=== PATIENT | female | born 1935 ===

== ENCOUNTER 2017-01-04 14:23 | Inpatient (IN) | payer MEDICARE, OTHER ==
[2017-01-04] MEDS ORDERED: Bisacodyl SUPP* 10 MG SUPP PR PRN (15:52)
[2017-01-04] MEDS ORDERED: Ondansetron ODT TAB* 4 MG SL PRN (15:53)
[2017-01-04] MEDS ORDERED: Sodium Phosphate ADULT ENEMA* 118 ml bottle PR PRN (15:53)
[2017-01-04] MEDS ORDERED: Magnesium Hydroxide LIQ* 30 ML UDC PO PRN (15:53)
--- NOTE | 2017-01-04 19:12 | HP ---
HISTORY AND PHYSICAL:* ADDENDUM: Ms. Camilo is an 81-year-old female, who was transferred from [facility] with a hip fracture. Apparently, she had a mechanical fall within the past couple of days and then MRI of the hip revealed a hip fracture. [facility] requested for the patient to be transferred to further operatively treat the hip. The patient has a history of chronic oropharyngeal dysphagia and has a PEG tube in place with supplemental tube feeds. She also suffers from non-ST elevation [place] according to medical records we received from [facility] during her hospitalization in October of 2016. The patient is being admitted to our facility with plan for evaluation with Orthopedic Surgery for possibility of correction of the patient's hip fracture. Due to her history of non-ST elevation MT within the past 6 months, a Cardiology consult will be requested for clearance. For further details of the patient's presentation and plan, please see history and physical dictated by Evie Sena NP, on 01/04/17, with which I agree. [id number]/[facility] #: [id number] HOMER
--- NOTE | 2017-01-04 19:56 | CONSULT ---
Subjective Date of Service: 01/04/17 Interval History: Admission and consult Date: 01/04/[address] Zaira Krishna Service: Hospitalist CHIEF COMPLAINT: Right hip pain after a fall. Reason for consult: Pre-operative cardiac risk stratification. HISTORY OF PRESENT ILLNESS: Ms. Camilo is an 81-year-old female with past medical history significant for CKD, anemia, paroxysmal atrial fibrillation with evidence of sinus node dysfunction demand related ischemia during prolonged hospitalization and sepsis 10/2016, hypothyroidism and dysphagia with aspiration status post PEG tube placement, who presents to [facility] from [facility] after a fall. 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 Discharge summary 10/30/2016 ultimate diagnosis sepsis with severe hypothermia, ? colovaginal fistula, aspiration pneumonia, UTI with enterococcus and eugene. Had a peg placed that admission for aspiration recurrent. There was also paroxysmal atrial fibrillation and and "Non-ST-T wave acute [place] with demand ischemia-improved" diagnosis during this admission. An echocardiogram showed no LV dysfunction or wall motion abnormalities. Per HPI "The patient was discharged on 10/30/16 to [facility] for rehabilitation. On 12/29/16, the patient was diagnosed with a Klebsiella pneumonia UTI. She was started initially on Bactrim , but developed rash and was changed to cephalexin on 01/03/17" ON 01/01/2017 she was out with daughter, had a mechanical fall. She denies any lightheadedness, palpitations, chest pain or syncope. Found with a right hip fracture that is in need of surgery. PAST MEDICAL HISTORY: Chronic kidney disease. Anemia. Hyperlipidemia. Paroxysmal atrial fibrillation with "tachy-reshma" syndrome Hx type 2 [place] non-plaque disruption [place] GERD. Hypothyroidism. Dysphagia. C. Diff colitis. Uterine cancer. Cerebral hemangioma anemia possible lupus dysplipidemia polycythemia vera surgeries: hysterectomy tonsillectomy PEG tube placement in October 2016. allergies: penicillin, bactrim soc hhx: no tobacco or etoh fam hx: mother HTN SOCIAL HISTORY: The patient denies any tobacco, alcohol, or recreational drug use. She is a retired homemaker. The patient's daughter will be her surrogate decision maker in the event she is unable to make decisions for herself. Medications Active Medications: Acetaminophen (Tylenol Adult Liq*) 320 mg PEG TUBE Q8H PRN PRN Reason: FEVER/PAIN Aspirin (Aspirin Ec Low Dose*) 81 mg .SEE ORDER DAILY BERNADETTE Bisacodyl (Dulcolax Supp*) 10 mg IL DAILY PRN PRN Reason: CONSTIPATION Cephalexin HCl (Keflex Susp*) 250 mg PEG TUBE TID BERNADETTE Stop: 01/08/17 14:30 Docusate Sodium (Colace Liq*) 100 mg PO BID PRN PRN Reason: CONSTIPATION Enoxaparin Sodium (Lovenox(*)) 30 mg SUBCUT DAILY [facility] Famotidine (Pepcid Susp*) 20 mg PEG TUBE DAILY [facility] Ferrous Sulfate (Feosol Liq*) 300 mg PEG TUBE DAILY [facility] Lactulose (Lactulose*) 15 ml PEG TUBE DAILY PRN PRN Reason: CONSTIPATION Levothyroxine Sodium (Synthroid Tab*) 75 mcg PEG TUBE DAILY@0600 [facility] Magnesium Hydroxide (Milk Of Magnesia Liq*) 30 ml PO BEDTIME PRN PRN Reason: CONSTIPATION Ondansetron HCl (Zofran Odt Tab*) 4 mg SL Q4HR PRN PRN Reason: NAUSEA Polyvinyl Alcohol (Polyvinyl Alcohol 1.4% Opth*) 1 drop BOTH EYES Q4H PRN PRN Reason: DRY EYE Sodium Biphosphate/Sodium Phosphate (Fleet Enema*) 1 bottle IL DAILY PRN PRN Reason: CONSTIPATION Home Medications: Acetaminophen PED LIQ* [Tylenol PED LIQ UDC*] 10 ml PEG TUBE Q8HR PRN [History Confirmed 01/04/17] Aspirin EC Low Dose* [Ecotrin EC Low Dose 81 MG*] 81 mg PEG TUBE DAILY 01/04/17 [History Confirmed 01/04/17] Bisacodyl SUPP* [Dulcolax Supp*] 10 mg IL DAILY PRN 01/04/17 [History Confirmed 01/04/17] Cephalexin SUSP* [Keflex SUSP 250 MG/5 ML*] 250 mg PEG TUBE TID 01/04/17 [ History Confirmed 01/04/17] Colace 100mg/10ml 10 ml PEG TUBE BID PRN 01/04/17 [History Confirmed 01/04/17] Enoxaparin(*) [Lovenox(*)] 30 mg SUBCUT DAILY 01/04/17 [History Confirmed ] Famotidine SUSP* [Pepcid SUSP*] 40 mg PEG TUBE DAILY 01/04/17 [History Confirmed 01/04/17] Ferrous Sulfate LIQ* [Feosol LIQ*] 300 mg PEG TUBE DAILY 01/04/17 [History Confirmed 01/04/17] Lactulose* 15 ml PEG TUBE DAILY PRN 01/04/17 [History Confirmed 01/04/17] Levothyroxine TAB* [Synthroid 75 MCG TAB*] 75 mcg PEG TUBE DAILY 01/04/17 [ History Confirmed 01/04/17] Magnesium Hydroxide LIQ* [Milk of Magnesia LIQ*] 30 ml PO BEDTIME PRN 01/04/17 [ History Confirmed 01/04/17] Melatonin 6 ml PEG TUBE BEDTIME PRN 01/04/17 [History Confirmed 01/04/17] Nitroglycerin TAB 0.4 MG* 0.4 mg SL SEE INSTRUCTIONS PRN 01/04/17 [History Confirmed 01/04/17] Ondansetron ODT TAB* [Zofran 4 MG Odt TAB*] 4 mg SL Q4HR PRN 01/04/17 [History Confirmed 01/04/17] Polyethylene Glycol-Propylene [Systane Ultra 0.4-0.3 %] 1 drop BOTH EYES Q4H PRN 01/04/17 [History Confirmed 01/04/17] Sodium Phosphate ADULT ENEMA* [Fleet Enema*] 1 bottle IL DAILY PRN 01/04/17 [ History Confirmed 01/04/17] Throat Lozenges [Cough Drops Menthol] 1 jennifer PO SEE INSTRUCTIONS PRN 01/04/17 [ History Confirmed 01/04/17] diPHENhydraMINE PO* [Benadryl PO 25 MG TAB*] 25 mg PEG TUBE Q8H PRN 01/04/17 [ History Confirmed 01/04/17] Review of Systems - Measurements Intake and Output: Intake and Output Last 24 Hours 01/02/17 01/03/17 01/04/17 01/05/17 06:59 06:59 06:59 06:59 Intake Total 490 Output Total 550 Balance -60 Weight 110 lb Intake: Tube Feeding 240 Tube Feeding Flush Amount 250 Output: [place] 550 - Review of Systems Constitutional Symptoms: Positive: Unexplained Falls Negative: Weight Gain, Weight Loss, Weakness, Fatigue, Fever Dermatology: Negative: Rash, Skin Lesions HEENT: Negative: Change in Hearing, Vertigo, Tinnitus Eyes: Negative: Change in Vision, Double Vision, Eye Pain Thyroid: Negative: Thyroid Nodule, Cold Intolerance, Heat Intolerance, Sweatiness, Primary Hypothyroidism, Primary Hyperthyroidism Pulmonary: Negative: Cough, Sputum, Hemoptysis, Wheezing, Respiratory Distress, Shortness of Breath, COPD, Home Oxygen Cardiology: Negative: Chest Pain, Shortness of Breath, Palpitations, Swelling of Ankles, Peripheral Vascular Dis, Edema, Faintness, Syncope, Claudication, Paroxysmal Nocturnal Dyspnea, Orthopnea Gastroenterology: Positive: Difficulty Swallowing Negative: Abdominal Pain, Nausea, Vomiting, Heartburn, Constipation, Diarrhea , Blood in Stools, Change in Bowel Habits, Haematemesis, Melena Genital - Urinary: Negative: Dysuria, Hematuria, Polyuria Musculoskeletal: Negative: Joint Pain, Joint Stiffness, Arthritis, Low Back Pain Endocrinology: Negative: Obesity, Diabetes, Hyperglycemia, Hypoglycemia, Polydipsia, Polyuria, Pituitary Disease Hematologic/Lymphatic: Positive: Use of Antiplatelet Drugs Negative: Hx Leukemia, Hx Lymphoma, Use of Anticoagulant Neurology: Negative: Change in Vision, Diplopia, Dizziness, Change in Balancing, Change in Coordination, Change in Memory, Numbness\\Paresthesiae, Hx of Stroke\\TIA, Hx Seizures Psychiatry: Negative: Depression, Anxiety, Depressed Mood, Adhedonia, Tearfulness Allergic/Immunologic: Positive: Hx Environmental Allergies Negative: Athsma, Hx HIV Review of Systems Statement: All other review of systems negative, unless stated above. Objective Vital Signs: Temp Pulse Resp BP Pulse Ox 97.2 F 54 16 124/54 99 01/04/17 14:30 01/04/17 14:30 01/04/17 17:02 01/04/17 14:30 01/04/17 14:30 Appearance: nad, very pleasant Neck: NL Appearance and Movements; NL JVP, Trachea Midline Respiratory: Symmetrical Chest Expansion and Respiratory Effort, Clear to Auscultation Cardiovascular: NL Sounds; No Murmurs; No JVD, RRR, No Edema Abdominal: NL Sounds; No Tenderness; No Distention Extremities: No Edema, No Clubbing, Cyanosis Skin: No Rash or Ulcers Neurological: Alert and Oriented x 3 Laboratory Results: 01/05/17 06:05 01/05/17 06:05 EKG Data: 09/28/2016: NSR, LAE, RBBB Goodman TTE 09/29/2016 (indication elevated troponin): Normal LV size, LVEF 55-60% no WMA, , no significant valvular abnormalities noted, right pleural effusion noted. Assessment/Plan Eugenia Camilo is an 81 year old woman with a cardiac history of PAFib, demand related [place] evaluating for cardiac risk stratification prior to hip surgery. No recent type 1 plaque disruption [place], decompensated HF, severe valve disease, or malignant arrhythmia. No symptoms at her level of activity. LVEF 09/2016 normal. EKG earlier today showed sinus bradycardia, RBBB, no ischemic changes. There are no absolute cardiac contraindications for proceeding with hip surgery. We discussed and patient expressed understanding that there are some inherent risks of cardiovascular complications related to anesthesia and surgery despite no high risk clinical features. She accepts this risk in favor of the expected benefit the surgery is to provide. Aspirin can be held. Resting pulse is too low for a beta-bharti and I assume she has had issues with bradycardia in the past to treat atrial fibrillation given her "tachy-reshma " syndrome diagnosis although her recent fall was clearly mechanical. Thank you for allowing me to participate in the cardiovascular care of this patient. Please do not hesitate to contact me with questions or concerns.
[2017-01-04] MEDS: Cephalexin SUSP* 250 MG/5 ML ORAL.SUSP 100 ML BTL PEG TUBE SCH (21:03)
--- NOTE | 2017-01-04 22:41 | HP ---
ATTENDING PHYSICIAN ADDENDUM NOW INCLUDED ON THIS REPORT CC: Dr. Zaira Krishna * HISTORY AND PHYSICAL: DATE OF ADMISSION: 01/04/17 PRIMARY CARE PROVIDER: Dr. Zaira Krishna ATTENDING PHYSICIAN: Livia Kendrick MD * (dictated by Codi Sena NP) CHIEF COMPLAINT: Right hip pain after a fall. HISTORY OF PRESENT ILLNESS: Ms. Camilo is an 81-year-old female with past medical history significant for chronic diastolic heart failure, CKD, anemia, paroxysmal atrial fibrillation, NSTEMI in October 2016, hypothyroidism and dysphagia status post PEG tube placement, who presents to [facility] from [facility] after a fall. The patient was hospitalized in October at [facility] with sepsis. During that admission, she also had an NSTEMI and had a C. diff colitis. During that stay, the patient developed dysphagia, required PEG tube placement. The patient was discharged on 10/30/16 to [facility] for rehabilitation. On 12/29/16, the patient was diagnosed with a Klebsiella pneumonia UTI. She was started initially on Bactrim, but developed rash and was changed to cephalexin on 01/03/17. On 01/01/17, while out with her daughter, she took a step and fell; she denies any loss of consciousness, lightheadedness or dizziness at the time of the fall. She denies any head injury or any other injuries besides the right hip pain. The patient's daughter notified [facility] of the fall and they recommend the patient present to the emergency room for evaluation. While in the emergency room at [facility], the patient underwent a CT showing no signs of fracture and the patient was sent back to [facility]. On 01/02/17, during physical therapy , the patient was having increased pain with weightbearing on her right lower extremity, which was atypical for her. On 01/03/17, the patient had an MRI showing a nondisplaced fracture through the neck of the proximal right femur. The patient denies any recent fever, chills, chest pain, shortness of breath, nausea, vomiting, diarrhea, lightheadedness, dizziness or urinary symptoms. Based on the patient's hip fracture, Orthopedics Head reviewed the images at the [facility] and it was felt that the patient should be transferred to [facility] for possible surgery. The patient was directly admitted from [facility]. PAST MEDICAL HISTORY: 1. Chronic diastolic heart failure. 2. Chronic kidney disease. 3. Anemia. 4. Hyperlipidemia. 5. Paroxysmal atrial fibrillation. 6. NSTEMI. 7. GERD. 8. Hypothyroidism. 9. Dysphagia. 10. C. Diff colitis. 11. Uterine cancer. PAST SURGICAL HISTORY: 1. Status post hysterectomy. 2. Tonsillectomy as a child. 3. PEG tube placement in October 2016. HOME MEDICATIONS: Include: 1. Aspirin 81 mg via PEG tube daily. 2. Benadryl 25 mg via PEG tube every 8 hours as needed for allergic reaction, signs and symptoms. 3. Cephalexin 250 mg via G-tube 3 times daily for 5 days. 4. Cough drops 1 lozenge by mouth as needed for cough. 5. Docusate sodium 10 mL via PEG tube every 12 hours as needed for constipation. 6. Dulcolax suppository 10 mg rectal as needed for constipation. 7. Fleet enema 1 per rectum as needed for constipation if no results from Dulcolax suppository. 8. Famotidine 40 mg via G-tube daily. 9. Ferrous sulfate 300 mg via PEG tube daily. 10. Lactulose 15 mL via G-tube every day as needed for constipation. 11. Levothyroxine 75 mcg via PEG tube daily. 12. Lovenox 30 mg subcutaneous daily. 13. Melatonin liquid 6 mL via PEG tube every evening as needed for sleep. 14. Milk of magnesia 30 mL via PEG tube as needed for constipation. 15. Nitroglycerin 0.4 mg sublingual every 5 minutes as needed for chest pain for 3 doses and call M.D. 16. Systane Ultra solution eye drops 1 drop to both eyes every 4 hours as needed for dry eyes. 17. Acetaminophen 10 mL via PEG tube every 6 hours as needed for fever or pain. 18. Zofran 4 mg sublingual every 4 hours as needed for nausea, vomiting. ALLERGIES: PENICILLIN, BACTRIM. FAMILY HISTORY: The patient denies any family history of CAD, diabetes mellitus , or cancer. SOCIAL HISTORY: The patient denies any tobacco, alcohol, or recreational drug use. She is a retired homemaker. The patient's daughter, Shahrzad Rodriguez will be her surrogate decision maker in the event she is unable to make decisions for herself. REVIEW OF SYSTEMS: I performed a 14-point review of systems. All the pertinent positives and negatives are mentioned in the history of present illness. The remaining of review of systems are negative. PHYSICAL EXAMINATION GENERAL APPEARANCE: The patient is alert, pleasant, appears to be in no acute distress. VITAL SIGNS: Temperature 97.2, heart rate 54, respiratory rate 20, O2 sat 99% on room air, blood pressure 124/54. HEENT: Normocephalic, atraumatic. Pupils are equal and reactive to light. Extraocular movements are intact. RESPIRATORY: There is no accessory muscle use and her lungs are clear to auscultation bilateral. CARDIOVASCULAR: Regular rate and rhythm. S1 and S2 present. There are no murmurs, rubs, or gallops heard. ABDOMEN: Soft, nontender, nondistended. There are bowel sounds present x4. EXTREMITIES: There is no lower extremity edema. DP and PT pulses are 2+ and symmetric. MUSCULOSKELETAL: There is no clubbing or cyanosis noted. The patient exhibits good strength in all extremities. NEUROLOGICAL: The patient is alert and oriented x4. Cranial nerves II through XII are grossly intact. PSYCHOLOGICAL: The patient is calm and cooperative. SKIN: The patient has ecchymosis to her right hip. She also has a flat red rash to her face. DIAGNOSTIC STUDIES/LAB DATA: From [facility] from today, sodium 135, potassium 4.6, chloride 101, CO2 29, BUN 36, creatinine 1.4, glucose 91. White blood cell count 4.2, hemoglobin 12.0, hematocrit 37.1, and platelet count 255, 000. EKG shows a sinus bradycardia with a rate of 53 and right bundle-branch block. There is no previous EKG's for comparison. IMPRESSION: Ms. Camilo is an 81-year-old female with past medical history significant for chronic diastolic heart failure, kidney disease, anemia, hyperlipidemia, non-ST elevation myocardial infarction, paroxysmal atrial fibrillation, hypothyroidism, dysphagia, who presents to [facility] from [facility] after sustaining a fall for a right nondisplaced fracture through the neck of the proximal femur. She will be admitted as an inpatient for right hip fracture. ASSESSMENT/PLAN: 1. Right nondisplaced fracture through the neck of the proximal femur. We currently do not have imaging. We will work on getting imaging sent over from [facility]. For now, the patient will be placed on bed rest and we will ask Orthopedic Surgery to consult on her. We will use ice to her hip to help with pain and swelling. Due to the patient recently having non-ST elevation myocardial infarction, we will ask Cardiology to consult on the patient to assist with operative clearance. We will obtain an echocardiogram. 2. Urinary tract infection. Urine culture positive for Klebsiella Pneumonia. The patient will complete her course of cephalexin that is due to be continued through 1400 dose on 01/08/17. 3. Dysphagia with recurrent aspiration. The patient has a G-tube. She will be continued on a Jevity 1.5 with 4 cans total daily and water flushes before and after feeds in addition to flushing with medications. 4. Chronic diastolic heart failure. Cautious use of IV fluids. We are going to check an echocardiogram. 5. Gastroesophageal reflux disease. The patient will be continued on her home famotidine. 6. Hypothyroidism. The patient will be continued on her levothyroxine. 7. Paroxysmal atrial fibrillation. The patient is currently in a reshma sinus rhythm. She is not anticoagulated or currently on rate control medications. 8. Fluids, electrolytes and nutrition. Nothing by mouth. The patient may have ice chips and honey thick water as needed. She will have Jevity 1.5 tube feedings. 9. Code status. DNR/DNI. 10. DVT prophylaxis. The patient is at highest risk and will have Lovenox and SCD's. 12. Disposition. Inpatient. TIME SPENT: Time for this admission was approximately 60 minutes, greater than half of that was spent with the patient discussing medications, past medical history, and the events leading up to her arrival today, and performing a physical examination. The case has been reviewed with the attending, Dr. Kendrick, who agrees with the plan of care. Reviewed by CODI SENA, ANNE-Meg 01/05/17 8904 ADDENDUM: Ms. Camilo is an 81-year-old female, who was transferred from [facility] with a hip fracture. Apparently, she had a mechanical fall within the past couple of days and then MRI of the hip revealed a hip fracture. [facility] requested for the patient to be transferred to further operatively treat the hip. The patient has a history of chronic oropharyngeal dysphagia and has a PEG tube in place with supplemental tube feeds. She also suffers from non-ST elevation [place] according to medical records we received from [facility] during her hospitalization in October of 2016. The patient is being admitted to our facility with plan for evaluation with Orthopedic Surgery for possibility of correction of the patient's hip fracture. Due to her history of non-ST elevation [place] within the past 6 months, a Cardiology consult will be requested for clearance. For further details of the patient's presentation and plan, please see history and physical dictated by Codi Sena NP, on 01/04/17, with which I agree. LIVIA KENDRICK MD [id number]/[facility] #: [id number]/[facility] #: [id number] HOMER
[2017-01-04] MEDS: Acetaminophen ADULT LIQ* 650 MG/20.3 ML UDC PEG TUBE PRN (23:20)
[2017-01-05] MEDS: Levothyroxine TAB* 75 MCG TAB PEG TUBE SCH (05:37)
[2017-01-05] MEDS: Docusate LIQ* 100 MG/10 ML UDC PO PRN (05:37)
[2017-01-05 06:20] LABS: Hematocrit 37 % (35-47); Mean Corpuscular HGB Conc 33 g/dl (31-36); Mean Corpuscular Hemoglobin 32 pg (27-31); Mean Corpuscular Volume 97 fL (80-97); Mean Platelet Volume 10 um3 (7.4-10.4); Red Cell Distribution Width 17 % (10.5-15)
[2017-01-05 06:35] LABS: BUN/Creatinine Ratio 29.5 (8-20); Calcium 9.2 mg/dL (8.6-10.3); EGFR African American 54.5 (>60); EGFR Non-African American 42.4 (>60)
[2017-01-05 06:38] LABS: Potassium 4.7 mmol/L (3.5-5.0)
--- NOTE | 2017-01-05 07:32 | PN ---
Progress Note - Progress Note Date of Service: 01/05/17 Note: Full note dictated. Fall last Sunday. Has been walking but with significant pain R hip ever since. Lives at home alone but has been in a rehab facility. MRI done yesterday showed nondisplaced R femoral neck fracture. CT and MRI reviewed, no xrays available so those were ordered. A/P: R nondisplaced femoral neck fracture. Will plan on percutaneous fixation either by one of my partners today or by myself tomorrow. Had a tube feed at 6 am. Holding tube feeds now.
[2017-01-05] MEDS: Ferrous Sulfate LIQ* 300 MG/5 ML UDC PEG TUBE SCH (08:22)
[2017-01-05] MEDS: Cephalexin SUSP* 250 MG/5 ML ORAL.SUSP 100 ML BTL PEG TUBE SCH ×2 (08:22→22:32)
[2017-01-05] MEDS: Famotidine SUSP* 40 MG/5 ML ORAL.SUSP PEG TUBE SCH (08:22)
--- NOTE | 2017-01-05 08:24 | PN ---
Subjective Date of Service: 01/05/17 Interval History: Ms. Camilo is a bit confused about details but she states that she is feeling well. She denies chest pain, SOB, nausea, or abdominal pain. She notes that her right hip doesn't hurt unless she tries to move it. Objective Active Medications: Acetaminophen (Tylenol Adult Liq*) 320 mg PEG TUBE Q8H PRN Aspirin (Aspirin Ec Low Dose*) 81 mg .SEE ORDER DAILY [facility] Bisacodyl (Dulcolax Supp*) 10 mg DC DAILY PRN Cephalexin HCl (Keflex Susp*) 250 mg PEG TUBE TID [facility] Docusate Sodium (Colace Liq*) 100 mg PO BID PRN Enoxaparin Sodium (Lovenox(*)) 30 mg SUBCUT DAILY [facility] Famotidine (Pepcid Susp*) 20 mg PEG TUBE DAILY [facility] Ferrous Sulfate (Feosol Liq*) 300 mg PEG TUBE DAILY [facility] Lactulose (Lactulose*) 15 ml PEG TUBE DAILY PRN Levothyroxine Sodium (Synthroid Tab*) 75 mcg PEG TUBE DAILY@0600 [facility] Magnesium Hydroxide (Milk Of Magnesia Liq*) 30 ml PO BEDTIME PRN Ondansetron HCl (Zofran Odt Tab*) 4 mg SL Q4HR PRN Polyvinyl Alcohol (Polyvinyl Alcohol 1.4% Opth*) 1 drop BOTH EYES Q4H PRN Sodium Biphosphate/Sodium Phosphate (Fleet Enema*) 1 bottle DC DAILY PRN Vital Signs 01/04/17 01/04/17 01/04/17 14:30 15:32 17:02 Temperature 97.2 F Pulse Rate 54 Respiratory 20 20 16 Rate Blood Pressure 124/54 (mmHg) O2 Sat by Pulse 99 Oximetry 01/04/17 01/04/17 01/04/17 19:52 19:57 23:17 Temperature 97.4 F 97.7 F Pulse Rate 59 61 Respiratory 18 18 16 Rate Blood Pressure 108/47 103/48 (mmHg) O2 Sat by Pulse 99 100 Oximetry 01/05/17 01/05/17 03:36 06:02 Temperature 97.4 F Pulse Rate 58 62 Respiratory Rate Blood Pressure 97/51 107/48 (mmHg) O2 Sat by Pulse 100 Oximetry Oxygen Devices in Use Now: None Appearance: Female lying in bed in NAD Eyes: No Scleral Icterus Ears/Nose/Mouth/Throat: Mucous Membranes Moist Neck: Trachea Midline Respiratory: Symmetrical Chest Expansion and Respiratory Effort, Clear to Auscultation Cardiovascular: NL Sounds; No Murmurs; No JVD, No Edema Abdominal: NL Sounds; No Tenderness; No Distention Lymphatic: No Cervical Adenopathy Extremities: No Edema Skin: No Rash or Ulcers, No Nodules or Sclerosis Neurological: Alert and Oriented x 3, NL Muscle Strength and Tone, - - Confused on details about events leading to hospitalization Result Diagrams: 01/05/17 06:05 01/05/17 06:05 Microbiology and Other Data: Microbiology 01/04/17 15:20 Nasal Screen MRSA (PCR)(GOOD) - Final Nasal Mrsa Negative Assess/Plan/Problems-Billing Assessment: Ms. Camilo is an 81 yo female with a PMH of chronic diastolic HF, CAD with NSTEMI, CKD, paroxymal afib, and dysphagia on tube feedings who was admitted on 01/04/17 with a right hip fracture after a mechanical fall. - Patient Problems (1) Closed right hip fracture Comment: - May have surgery today, Dr. Hopkins has consulted. - Pre-op cardiology consultation, no further testing and no contraindications for proceeding with surgery. (2) CKD (chronic kidney disease) Comment: - Creatinine at baseline. (3) UTI (urinary tract infection) Comment: - Diagnosed at [facility]. - Complete course of cephalexin. (4) CAD (coronary artery disease) Comment: - Asymptomatic. - Hx of NSTEMI at [facility] in October 2016, thought to be due to sepsis and demand ischemia. EF 09/2016 was normal. - Continue low dose aspirin when approved per surgery. (5) Paroxysmal a-fib Comment: - Currently in SR. - Not on rate controlling agents (question history of tachy-reshma syndrome) or anticoagulation likely due to poor functional status. (6) Hypothyroidism Comment: - Continue levothyroxine. (7) DVT prophylaxis Comment: - Continue lovenox. (8) DNR (do not resuscitate) Status and Disposition: Inpatient. Likely return to [facility] when medically stable.
--- NOTE | 2017-01-05 08:34 | RAD ---
Indication: Right hip pain. 2 views of the right hip and an AP view of the pelvis demonstrates fracture of the neck of the right femur. There is likely overriding of the fracture fragments. IMPRESSION: Nondisplaced fracture of the neck of the right femur.
--- NOTE | 2017-01-05 08:46 | RAD ---
Indication: Right femur injury. 2 views of the right femur demonstrates nondisplaced fracture through the neck of the right femur. The remainder of the diaphysis is unremarkable. IMPRESSION: No fracture of the right femur is noted. Nondisplaced fracture neck of the right femur.
[2017-01-05] MEDS ORDERED: Enoxaparin(*) 30 MG/0.3 ML SYR SUBCUT SCH (09:00)
[2017-01-05] MEDS ORDERED: KETAMINE HCL* 50 MG/ML 10 ML VIAL ONE (11:34)
[2017-01-05] MEDS ORDERED: Midazolam* 1 MG/ML 2 ML VIAL (2 MG) ONE ×2 (11:35→14:01)
[2017-01-05] MEDS ORDERED: Bupivacaine 0.5% W/EPI SDV* 10 ML VIAL INJ ONE ×2 (11:38)
[2017-01-05] MEDS ORDERED: Morphine PF AMP (0.5MG/ML)* 5 MG/10 ML AMP ONE (11:59)
[2017-01-05] MEDS ORDERED: ceFAZolin 2 GM PREMIX(*) 2 GM/50 ML BAG IVPB ONE (12:01)
--- NOTE | 2017-01-05 13:37 | CONS ---
CONSULTATION REPORT: DATE OF CONSULT: 01/05/17 CHIEF COMPLAINT: Right hip pain. HISTORY OF PRESENT ILLNESS: Ms. Camilo is 81 years old. She lives independently at home in [place] . Her is . She has had a complicated recent medical course including a hospitaliza tion in October at [place] with sepsis. She also had some cardiac issues at that time, she had C. diff. She had a PEG tube placed for dysphagia. She went to [facility] in October. On 12/29/16, she wa s diagnosed with klebsiella urinary tract infection. She was started on Bactrim. She states she was doing well. She later had been changed to cephalexin. On last Sunday, she had a fall where she sa id that she just went to step and was not sure what happened but she fell. Since then, she has had significant right hip pain. She has been ambulating. She had some x-rays and CT scan done, which we re inconclusive for fracture. When the pain persisted, she had an MRI scan of the hip done yesterda y, which showed a nondisplaced femoral neck fracture. She was direct admitted to the hospital. [place] frances, she is very conversant with me, says she only has right hip, otherwise she is feeling pretty goo d. PAST MEDICAL HISTORY: Chronic diastolic heart failure, chronic kidney disease, anemia, hyperlipidem ia, paroxysmal atrial fibrillation, history of NSTEMI, GERD, hypothyroidism, dysphagia, C. diff coli tis, history of uterine cancer. PAST SURGICAL HISTORY: PEG tube placement in October 2016, status post hysterectomy, tonsillectomy as a child. MEDICATIONS: She takes an aspirin 81 mg daily via the PEG tube. Her home medications also include: 1. Benadryl. 2. Cephalexin. 3. Famotidine. 4. Iron. 5. Lactulose. 6. Levothyroxine. 7. Lovenox 30 mg subcutaneous daily. 8. Melatonin. There is no significant change from these medications here in the hospital. ALLERGIES: PENICILLIN and BACTRIM with a recent rash on BACTRIM. FAMILY HISTORY: Noncontributory. SOCIAL HISTORY: She lives independently at her own home. She is a . She does not smoke or dr ink alcohol. REVIEW OF SYSTEMS: Right hip pain; otherwise, full review of systems was conducted and was negative . PHYSICAL EXAM: Awake and alert this morning, very pleasant. Vital Signs: 97.4, 58, 97/51, 100% on room air. HEENT: Normocephalic, atraumatic. Respiratory: Normal respiratory effort, clear. Card iovascular: Regular. Abdomen: Soft, nondistended. Musculoskeletal: Secondary survey of the bila teral upper extremities and left lower extremity is negative. She has no deformity in the right low er extremity. No tenderness over the knee or hip. Her pelvis is stable. She has pain with log roll of the right hip. Neurological: Neurovascularly intact distally. DIAGNOSTIC STUDIES/LAB DATA: Her H and H is 12 and 37, her white count is 5.0, platelets are 212. The creatinine is 1.22. The rest of the chemistries are all unremarkable. Recent CT dated 12/29/16 was reviewed by me. I do not see any obvious femoral neck fracture on the CT. MRI dated 01/03/17 shows a hypointense lucent line along the course of the femoral neck. The right femoral neck on the T1 series on the fluid-sensitive sequences, this is a hyperintense line thought consistent with a nondisplaced fracture. IMPRESSION: Right femoral neck nondisplaced fracture. PLAN: I will obtain x-rays. I would recommend operative stabilization to prevent this from displac ing as displacement of the fracture would necessitate likely hip replacement. I will ask them to ho ld tube feeds. She had a tube feed this morning at 6 a.m. Neither myself or one of my partners emmanuel l plan on taking care of this either today, if not, we will let her get some feeds and then we will hold those at midnight and I will take care of it tomorrow. The plan would be for percutaneous fixa tion of her nondisplaced right femoral neck fracture. [id number]/[facility] #: [id number]
[2017-01-05] MEDS ORDERED: Phenylephrine INJ* 10 MG/ML 1 ML VIAL (10 MG) ONE (14:02)
[2017-01-05] MEDS ORDERED: fentaNYL* 50 MCG/ML 2 ML VIAL (100 MCG VIAL) ONE (14:45)
[2017-01-05] MEDS ORDERED: EPHEDrine (Pressors)* 50 MG/ML VIAL ONE (14:51)
[2017-01-05] MEDS: fentaNYL* 50 MCG/ML 2 ML VIAL (100 MCG VIAL) IV PRN ×4 (15:00→16:39)
--- NOTE | 2017-01-05 16:05 | RAD ---
INDICATION: Right hip fracture internal fixation COMPARISONS: January 06, 2016 TECHNIQUE: Fluoroscopy was provided for a surgical procedure. Total fluoroscopy time is: 140.5 seconds FINDINGS: Spot images of the straight internal fixation of the right femoral neck IMPRESSION: FLUOROSCOPY WAS PROVIDED FOR A SURGICAL PROCEDURE CPT II Codes: 6045F
[2017-01-05] MEDS ORDERED: Morphine INJ* 4 MG/ML 1 ML SYRINGE ONE (17:07)
[2017-01-05] MEDS: Morphine INJ* 2 MG/ML 1 ML SYRINGE IV PRN ×5 (17:13→17:37)
[2017-01-05] MEDS ORDERED: NS 0.9% 500 ML BAG* 500 ML IV ONE (19:00)
--- NOTE | 2017-01-05 19:01 | PN ---
Subjective Date of Service: 01/05/17 Interval History: dos 01/05/2017 s/p surgery no chest pain, dyspnea or lightheadedness Medications Active Medications: Acetaminophen (Tylenol Adult Liq*) 320 mg PEG TUBE Q8H PRN PRN Reason: FEVER/PAIN Last Admin: 01/04/17 23:20 Dose: 320 mg Aspirin (Aspirin Ec Low Dose*) 81 mg .SEE ORDER DAILY [facility] Bisacodyl (Dulcolax Supp*) 10 mg MN DAILY PRN PRN Reason: CONSTIPATION Cephalexin HCl (Keflex Susp*) 250 mg PEG TUBE TID [facility] Stop: 01/08/17 14:30 Last Admin: 01/05/17 08:22 Dose: 250 mg Docusate Sodium (Colace Liq*) 100 mg PO BID PRN PRN Reason: CONSTIPATION Last Admin: 01/05/17 05:37 Dose: 100 mg Famotidine (Pepcid Susp*) 20 mg PEG TUBE DAILY [facility] Last Admin: 01/05/17 08:22 Dose: 20 mg Ferrous Sulfate (Feosol Liq*) 300 mg PEG TUBE DAILY [facility] Last Admin: 01/05/17 08:22 Dose: 300 mg Sodium Chloride (Ns 0.9% 500 Ml Bag*) 500 mls @ 1,000 mls/hr IV ONCE ONE Stop: 01/05/17 19:29 Last Admin: 01/05/17 18:48 Dose: 1,000 mls/hr Sodium Chloride (Ns 0.9% 1000 Ml*) 1,000 mls @ 100 mls/hr IV PER RATE [facility] Lactulose (Lactulose*) 15 ml PEG TUBE DAILY PRN PRN Reason: CONSTIPATION Last Admin: 01/04/17 23:20 Dose: 15 ml Levothyroxine Sodium (Synthroid Tab*) 75 mcg PEG TUBE DAILY@0600 [facility] Last Admin: 01/05/17 05:37 Dose: 75 mcg Magnesium Hydroxide (Milk Of Magnesia Liq*) 30 ml PO BEDTIME PRN PRN Reason: CONSTIPATION Ondansetron HCl (Zofran Odt Tab*) 4 mg SL Q4HR PRN PRN Reason: NAUSEA Oxycodone HCl (Roxycodone Tab*) 5 mg PO Q4H PRN PRN Reason: PAIN Polyvinyl Alcohol (Polyvinyl Alcohol 1.4% Opth*) 1 drop BOTH EYES Q4H PRN PRN Reason: DRY EYE Sodium Biphosphate/Sodium Phosphate (Fleet Enema*) 1 bottle MN DAILY PRN PRN Reason: CONSTIPATION Objective Vital Signs: Temp Pulse Resp BP Pulse Ox 96.6 F 59 16 101/52 100 01/05/17 17:15 01/05/17 17:28 01/05/17 17:37 01/05/17 17:28 01/05/17 17:28 Oxygen Devices in Use Now: None Appearance: nad, very pleasant Neck: NL Appearance and Movements; NL JVP, Trachea Midline Respiratory: Symmetrical Chest Expansion and Respiratory Effort, Clear to Auscultation Cardiovascular: NL Sounds; No Murmurs; No JVD, RRR, No Edema Abdominal: NL Sounds; No Tenderness; No Distention Extremities: No Edema, No Clubbing, Cyanosis Skin: No Rash or Ulcers Neurological: Alert and Oriented x 3 Laboratory Results: 01/05/17 06:05 01/05/17 06:05 EKG Data: 09/28/2016: NSR, LAE, RBBB [place] TTE 09/29/2016 (indication elevated troponin): Normal LV size, LVEF 55-60% no WMA, , no significant valvular abnormalities noted, right pleural effusion noted. Assessment/Plan Eugenia Camilo is an 81 year old woman with a cardiac history of PAFib with sinus node dysfunction, demand related VA, RBBB, TTE today normal LVEF no significant valvular abnormalities now post-hip surgery doing well. - Can continue prior medications including aspirin if ok from a surgery standpoint Thank you for allowing me to participate in the cardiovascular care of this patient. Please do not hesitate to contact me with questions or concerns.
[2017-01-05] MEDS: Aspirin EC Low Dose* 81 MG TAB.EC SCH (20:58)
[2017-01-05] MEDS: Acetaminophen ADULT LIQ* 650 MG/20.3 ML UDC PEG TUBE PRN (21:05)
[2017-01-05] MEDS: ceFAZolin 1 GM in Dextrose (*) 1 GM/50 ML BAG IVPB SCH (21:05)
[2017-01-06] MEDS: NS 0.9% 1000 ML* 1,000 ML IV SCH ×3 (00:53→21:40)
[2017-01-06] MEDS: Acetaminophen ADULT LIQ* 650 MG/20.3 ML UDC PEG TUBE PRN ×3 (04:14→17:08)
[2017-01-06] MEDS: ceFAZolin 1 GM in Dextrose (*) 1 GM/50 ML BAG IVPB SCH ×2 (04:15→12:36)
[2017-01-06 05:36] LABS: Hematocrit 25 % (35-47); Hemoglobin 8.2 g/dl (12.0-16.0)
[2017-01-06] MEDS: Levothyroxine TAB* 75 MCG TAB PEG TUBE SCH (05:47)
[2017-01-06 05:52] LABS: Albumin 2.3 g/dL (3.2-5.2); BUN/Creatinine Ratio 27.4 (8-20); Calcium 8.5 mg/dL (8.6-10.3); EGFR African American 64.1 (>60); EGFR Non-African American 49.9 (>60); Potassium 4.5 mmol/L (3.5-5.0); Total Bilirubin 0.2 mg/dL (0.2-1.0); Total Protein 4.3 g/dL (6.4-8.9)
[2017-01-06] MEDS: oxyCODONE TAB* 5 MG TAB PO PRN ×4 (07:39→21:04)
--- NOTE | 2017-01-06 08:31 | PN ---
Progress Note - Progress Note Date of Service: 01/06/17 SOAP: Subjective: Patient has right hip pain. She is happy with her progress. Cards 01/05/17 post-op: may restart pre-op meds including ASA, no other interventions Objective: NAD Abd S/ND/NT with PEG tube in place RLE - dressing c/d/i - NVID Selected Entries 01/06/17 07:47 Temperature 96.7 F Pulse Rate 59 Blood Pressure 100/48 (mmHg) O2 Sat by Pulse 99 Oximetry Laboratory Tests 01/05/17 01/05/17 01/06/17 06:05 06:05 05:30 WBC 5.0 Hct 37 25 L Creatinine 1.22 H 01/06/17 05:30 WBC Hct Creatinine 1.06 H Assessment: POD 1 CR cannulated screws R hip femoral neck fracture Plan: - PT, OOB, TDWB - Anticoagulation with Lovenox 30 mg daily - Pain control - Ancef 1 gm IV q 8 hrs for 24 hrs - May restart ASA from a surgical perspective. I softly prefer ASA 81mg rather than 325mg as the patient is currently on Lovenox.
[2017-01-06] MEDS: Aspirin EC Low Dose* 81 MG TAB.EC SCH (09:45)
[2017-01-06] MEDS: Famotidine SUSP* 40 MG/5 ML ORAL.SUSP PEG TUBE SCH (09:46)
[2017-01-06] MEDS: Ferrous Sulfate LIQ* 300 MG/5 ML UDC PEG TUBE SCH (09:47)
[2017-01-06] MEDS: Docusate LIQ* 100 MG/10 ML UDC PO PRN (09:47)
[2017-01-06] MEDS: Enoxaparin(*) 30 MG/0.3 ML SYR SUBCUT SCH (09:54)
--- NOTE | 2017-01-06 10:32 | PN ---
Subjective Date of Service: 01/06/17 Interval History: Ms. Camilo reports that she has some right hip pain but denies other complaint including chest pain, SOB, nausea, or abdominal pain. Objective Active Medications: Acetaminophen (Tylenol Adult Liq*) 320 mg PEG TUBE Q6H PRN Aspirin (Aspirin Ec Low Dose*) 81 mg .SEE ORDER DAILY [facility] Bisacodyl (Dulcolax Supp*) 10 mg DE DAILY PRN Cephalexin HCl (Keflex Susp*) 250 mg PEG TUBE 0900,1400,2100 [facility] Docusate Sodium (Colace Liq*) 100 mg PO BID PRN Enoxaparin Sodium (Lovenox(*)) 30 mg SUBCUT DAILY [facility] Famotidine (Pepcid Susp*) 20 mg PEG TUBE DAILY [facility] Ferrous Sulfate (Feosol Liq*) 300 mg PEG TUBE DAILY [facility] Sodium Chloride (Ns 0.9% 1000 Ml*) 1,000 mls @ 100 mls/hr IV PER RATE [facility] Cefazolin Sodium/Dextrose (Kefzol 1 Gm In Dextrose Duplex (*)) 1 gm in 50 mls @ 200 mls/hr IVPB Q8H [facility] Lactulose (Lactulose*) 15 ml PEG TUBE DAILY PRN Levothyroxine Sodium (Synthroid Tab*) 75 mcg PEG TUBE DAILY@0600 [facility] Magnesium Hydroxide (Milk Of Magnesia Liq*) 30 ml PO BEDTIME PRN Ondansetron HCl (Zofran Odt Tab*) 4 mg SL Q4HR PRN Oxycodone HCl (Roxycodone Tab*) 5 mg PO Q4H PRN Polyvinyl Alcohol (Polyvinyl Alcohol 1.4% Opth*) 1 drop BOTH EYES Q4H PRN Sodium Biphosphate/Sodium Phosphate (Fleet Enema*) 1 bottle DE DAILY PRN Vital Signs 01/05/17 01/05/17 01/05/17 14:25 14:30 14:35 Temperature 96.8 F Pulse Rate 75 72 67 Respiratory 12 14 14 Rate Blood Pressure 142/76 149/69 90/56 (mmHg) O2 Sat by Pulse 99 98 98 Oximetry 01/05/17 01/05/17 01/05/17 14:45 15:00 15:15 Temperature 96.8 F Pulse Rate 74 68 68 Respiratory 14 14 14 Rate Blood Pressure 87/56 124/66 97/55 (mmHg) O2 Sat by Pulse 98 98 97 Oximetry 01/05/17 01/05/17 01/05/17 15:17 15:24 15:30 Temperature Pulse Rate 64 Respiratory 14 14 14 Rate Blood Pressure 80/53 (mmHg) O2 Sat by Pulse 97 Oximetry 01/05/17 01/05/17 01/05/17 15:45 16:00 16:15 Temperature Pulse Rate 65 65 65 Respiratory 12 14 14 Rate Blood Pressure 88/50 87/59 93/50 (mmHg) O2 Sat by Pulse 97 98 99 Oximetry 01/05/17 01/05/17 01/05/17 16:30 16:39 16:45 Temperature Pulse Rate 61 59 Respiratory 14 14 14 Rate Blood Pressure 83/57 97/51 (mmHg) O2 Sat by Pulse 99 98 Oximetry 01/05/17 01/05/17 01/05/17 17:00 17:13 17:15 Temperature 96.6 F Pulse Rate 58 57 Respiratory 14 14 16 Rate Blood Pressure 103/52 99/55 (mmHg) O2 Sat by Pulse 99 99 Oximetry 01/05/17 01/05/17 01/05/17 17:23 17:28 17:29 Temperature Pulse Rate 59 Respiratory 16 16 16 Rate Blood Pressure 101/52 (mmHg) O2 Sat by Pulse 100 Oximetry 01/05/17 01/05/17 01/05/17 17:32 17:37 18:15 Temperature 95.9 F Pulse Rate 56 Respiratory 15 16 16 Rate Blood Pressure 90/45 (mmHg) O2 Sat by Pulse 100 Oximetry 01/05/17 01/05/17 01/05/17 18:37 19:13 19:20 Temperature Pulse Rate 58 59 Respiratory 18 18 Rate Blood Pressure 93/41 97/42 (mmHg) O2 Sat by Pulse 100 Oximetry 01/05/17 01/05/17 01/05/17 19:23 20:00 20:20 Temperature 97.6 F Pulse Rate 59 55 Respiratory 18 16 Rate Blood Pressure 98/51 102/37 (mmHg) O2 Sat by Pulse 100 Oximetry 01/05/17 01/05/17 01/05/17 21:14 21:16 22:01 Temperature Pulse Rate 54 55 Respiratory 18 18 Rate Blood Pressure 95/45 97/33 (mmHg) O2 Sat by Pulse 100 100 Oximetry 01/05/17 01/05/17 01/05/17 22:05 22:20 22:28 Temperature 96.6 F Pulse Rate 56 Respiratory 18 18 Rate Blood Pressure 86/36 98/40 (mmHg) O2 Sat by Pulse Oximetry 01/05/17 01/05/17 01/06/17 23:34 23:35 01:00 Temperature 96.7 F 96.7 F 96.9 F Pulse Rate 55 55 59 Respiratory 20 18 18 Rate Blood Pressure 98/48 98/48 98/46 (mmHg) O2 Sat by Pulse 100 100 99 Oximetry 01/06/17 01/06/17 01/06/17 04:00 04:12 04:26 Temperature 95.8 F 96.8 F Pulse Rate 52 Respiratory Rate Blood Pressure 83/41 94/50 (mmHg) O2 Sat by Pulse 100 Oximetry 01/06/17 01/06/17 01/06/17 07:39 07:47 08:00 Temperature 96.7 F Pulse Rate 59 Respiratory 18 18 18 Rate Blood Pressure 100/48 (mmHg) O2 Sat by Pulse 99 Oximetry 01/06/17 09:39 Temperature Pulse Rate Respiratory 18 Rate Blood Pressure (mmHg) O2 Sat by Pulse Oximetry Oxygen Devices in Use Now: None Appearance: Elderly female lying in bed in NAD Eyes: No Scleral Icterus Ears/Nose/Mouth/Throat: Mucous Membranes Moist Neck: Trachea Midline Respiratory: Symmetrical Chest Expansion and Respiratory Effort, Clear to Auscultation Cardiovascular: NL Sounds; No Murmurs; No JVD, No Edema Abdominal: NL Sounds; No Tenderness; No Distention Lymphatic: No Cervical Adenopathy Extremities: No Edema Skin: No Rash or Ulcers Neurological: Alert and Oriented x 3, NL Muscle Strength and Tone Nutrition: Taking PO's Result Diagrams: 01/06/17 05:30 01/06/17 05:30 Microbiology and Other Data: Microbiology 01/04/17 15:20 Nasal Screen MRSA (PCR)(GOOD) - Final Nasal Mrsa Negative Assess/Plan/Problems-Billing Assessment: Ms. Camilo is an 81 yo female with a PMH of chronic diastolic HF, CAD with NSTEMI, CKD, paroxymal afib, and dysphagia on tube feedings who was admitted on 01/04/17 with a right hip fracture after a mechanical fall. - Patient Problems (1) Closed right hip fracture Comment: - POD # 1. - Management per ortho. - Pain meds prn with bowel regimen. - Hgb down to 8.2 from 12. Will consider transfusion if < 8 and patient is symptomatic. (2) Chronic diastolic heart failure Comment: - Asymptomatic. Appears euvolemic. (3) CKD (chronic kidney disease) Comment: - Creatinine at baseline. (4) UTI (urinary tract infection) Comment: - Diagnosed at [facility]. - Completed course of cephalexin. (5) CAD (coronary artery disease) Comment: - Asymptomatic. - Hx of NSTEMI at [facility] in October 2016, thought to be due to sepsis and demand ischemia. EF 09/2016 was normal. - Continue low dose aspirin. (6) Paroxysmal a-fib Comment: - Currently in SR. - Not on rate controlling agents (question history of tachy-reshma syndrome) or anticoagulation likely due to poor functional status. (7) Hypothyroidism Comment: - Continue levothyroxine. (8) Dysphagia Comment: - Continue jevity per routine. (9) GERD (gastroesophageal reflux disease) Comment: - Continue famotidine. (10) DVT prophylaxis Comment: - Continue lovenox. (11) DNR (do not resuscitate) Status and Disposition: Inpatient. Likely return to [facility] when medically stable.
--- NOTE | 2017-01-06 15:07 | OP ---
OPERATIVE REPORT: DATE OF OPERATION: 01/05/17 DATE OF : 37 SURGEON: Jair Callahan MD SENIOR TRAINING AND DEVELOPMENT REP: YANA Segal A physician mri assistant was required throughout the length of the procedure for positioning and retrac tion. ANESTHESIOLOGIST: Ryan Holguin MD ANESTHESIA: Spinal anesthesia, local anesthesia, 10 cc of 0.5% Marcaine with epinephrine. PRE-OP DIAGNOSIS: Right nondisplaced femoral neck fracture. POST-OP DIAGNOSIS: Right hip nondisplaced femoral neck fracture. OPERATIVE PROCEDURE: Closed reduction percutaneous screw placement, femoral neck fracture, right hi p. ANTIBIOSIS: 2 g Ancef IV. IV FLUIDS: 1200 cc crystalloid. COMPLICATIONS: None. SPECIMEN: None. ESTIMATED BLOOD LOSS: Approximately 200 cc. IMPLANTS: Synthes, 7.3 cannulated screws x3. Two screws were long threaded and 88 mm long. One sc rew was short threaded and 85 mm long, the inferior screw. INDICATIONS FOR PROCEDURE: The patient is an 81-year-old woman, lives independently in the [facility], who has had a very complicated recent past medical history including hospitalization in October at [facility] with sepsis, a C-diff infection, a PEG tube placed for dysphagia and a klebsiella ur inary tract infection. She was most recently at [facility]. The patient was treated by Bact rim which was changed to Keflex for her urinary tract infection. Seven days ago, the patient had a fall. Unclear history of exactly how she fell. The patient is not a good historian herself and so history is from attendants at [facility] and the patient's daughter. The patient developed signifi cant right hip pain. She went to [facility] where x-rays and a CT scan were done, but were i nconclusive. No clear fracture was visualized. The patient then had an MRI scan of the right hip, which demonstrated nondisplaced femoral neck fracture at the [facility]. The patient was the refore directly admitted to [facility] for operative management. My partner, Dr[facility] Lb Hopkins, [facility] and [facility] the [facility]. I concur with his evaluation that the femoral neck fracture is not dayna ar on the CT, but there are lucencies about the femoral neck on the MRI dated 01/03/17 and that x-ra ys on admission to [facility] do show a clear defect of the inferior side of the femoral neck. Dr. Hopkins planned to do the procedure, but I was available and so did the procedure. The pa kwasi's tube feeds were held at 6 a.m. the date of surgery. I spoke with the patient's daughter sneha holman obtained operative consent from her. The patient did not have any other questions. I explained t he rationale for surgery, benefits, risks and potential complications. DESCRIPTION OF PROCEDURE: A preoperative consent was obtained by telephone from the patient's daugh ter. Two witnesses signed the consent form. They spoke with the patient's daughter as well. Opera tive extremity was marked in Preoperative Holding. The patient was taken back to the operating room and placed supine on the fracture table. A spinal anesthetic was infused by Anesthesia. The patien t was positioned in the fracture table. Some light traction was placed on the right lower extremity to try to improve some very subtle apex anterior angulation at the fracture site. This was very pérez btle angulation; we may have improved it slightly. The right lower extremity was prepped and draped. Surgical time-out was performed. Appropriate land sahni were marked with a skin marker. A pin was placed, starting at the level of the lesser trochan ter and going up into the femoral neck and head. It was not yet perfect, but I had decided to extend my skin incision. I made skin incision proximally 5 cm in length and longitudinal through the skin and then with the [place] blade through the subcutaneous tissue, iliotibial band and vastus laterali s. Retractors were placed. Pin position was improved. A pin was placed starting at the level of t he lesser trochanter, and aiming as parallel as possible to the femoral shaft orientation to obtain valgus screw position as much as possible. I placed the inferior pin first. My inferior pin was ri ght along the subchondral bone of the inferior femoral neck. I then used a variety of pin inserted devices to place 2 additional pins, one more proximal and ante rior; one more proximal and posterior. I then improved upon the position of my inferior pin making it slightly more proximal, so would not dig into subchondral bone or through subchondral bone quite as much. With my pin positions confirmed to be excellent in the AP view and a variety of lateral vi ews, I next measured the correct length for my screws to be. I then drilled the lateral cortex only and placed the screws. My first screw, I placed inferior, I made that a short thread as I did not believe the long thread would span the fracture line. I placed a short threaded 90 mm screw. That was later removed and turned into an 85 mm screw as I just did not like how close it was to the subc hondral bone even though I was being overly careful. Given any shift or impaction or vagaries that may happen postoperative, I want to be clear of the subchondral bone. I placed my more proximal scr ews after having drilled the lateral cortex. Those were both long threaded screws. The long thread s appeared to cross the fracture line. One of those screws I also shortened, so actually wasted 2 s crews in the procedure unfortunately. The bite of all 3 screws was excellent, telling me that I have excellent purchase of bone and that s hould heal excellently. A lucency was still visualized at the inferior aspect of the fracture line, but the purchase of the screws was excellent, so I am confident of a very good result regarding scr ew position and screw to bone purchase. Profuse irrigation. Closure of the iliotibial band with [id number] stitches using Vicryl 0 sut ure. Irrigation. Closure of the subcutaneous layer, few deep stitches followed by more superficial subcutaneous stitches with buried simple stitches using Vicryl 2.0 suture. Closure of skin with sta ples. Local anesthesia, 10 cc of 0.5% Marcaine with epinephrine. Xeroform, 4x4's, ABDs, foam tape. The pa tient was taken off the fracture table and placed on the stretcher. DISPOSITION: The patient will be readmitted to the medical service. She will be anticoagulated wit h Lovenox 40 mg subcu daily starting the morning after surgery as along as that is okay with the [facility] service given her medical comorbidities. We will follow her creatinine. Ancef 1 g IV q.8 hour s x 24 hours. Touchdown weightbearing until 2 weeks postop. The patient will see me in 10 to 14 da ys postoperatively and will have her abhijit removed. Her dressing will be changed for the first ti me on either postoperative day 2 or 3. [id number]/[facility] #: [id number]
[2017-01-06] MEDS: Cephalexin SUSP* 250 MG/5 ML ORAL.SUSP 100 ML BTL PEG TUBE SCH (21:10)
[2017-01-07] MEDS: oxyCODONE TAB* 5 MG TAB PO PRN ×5 (03:50→23:28)
[2017-01-07] MEDS: Levothyroxine TAB* 75 MCG TAB PEG TUBE SCH (05:37)
[2017-01-07] MEDS: Acetaminophen ADULT LIQ* 650 MG/20.3 ML UDC PEG TUBE PRN ×2 (06:00)
[2017-01-07 06:34] LABS: Hematocrit 25 % (35-47)
[2017-01-07] MEDS: NS 0.9% 1000 ML* 1,000 ML IV SCH (07:35)
--- NOTE | 2017-01-07 08:06 | PN ---
Progress Note - Progress Note Date of Service: 01/07/17 Note: Doing well this morning. Pain improved. Out of bed to chair. Awake and alert Dressing c/d/i +TA/GS function distally H/H stable: 8.0/25 A/P: Doing well POD#2 Continue care, no changes, already out of bed this morning Dispo planning
--- NOTE | 2017-01-07 09:34 | PN ---
Subjective Date of Service: 01/07/17 Interval History: Ms. Camilo states that she is feeling well today. She denies chest pain, SOB, nausea, or abdominal pain. Objective Active Medications: Acetaminophen (Tylenol Adult Liq*) 320 mg PEG TUBE Q6H PRN Aspirin (Aspirin Ec Low Dose*) 81 mg .SEE ORDER DAILY BERNADETTE Bisacodyl (Dulcolax Supp*) 10 mg [place] DAILY PRN Cephalexin HCl (Keflex Susp*) 250 mg PEG TUBE 0900,1400,2100 BERNADETTE Docusate Sodium (Colace Liq*) 100 mg PO BID PRN Enoxaparin Sodium (Lovenox(*)) 30 mg SUBCUT DAILY BERNADETTE Famotidine (Pepcid Susp*) 20 mg PEG TUBE DAILY BERNADETTE Ferrous Sulfate (Feosol Liq*) 300 mg PEG TUBE DAILY BERNADETTE Sodium Chloride (Ns 0.9% 1000 Ml*) 1,000 mls @ 100 mls/hr IV PER RATE BERNADETTE Lactulose (Lactulose*) 15 ml PEG TUBE DAILY PRN Levothyroxine Sodium (Synthroid Tab*) 75 mcg PEG TUBE DAILY@0600 BERNADETTE Magnesium Hydroxide (Milk Of Magnesia Liq*) 30 ml PO BEDTIME PRN Ondansetron HCl (Zofran Odt Tab*) 4 mg SL Q4HR PRN Oxycodone HCl (Roxycodone Tab*) 5 mg PO Q4H PRN Polyvinyl Alcohol (Polyvinyl Alcohol 1.4% Opth*) 1 drop BOTH EYES Q4H PRN Sodium Biphosphate/Sodium Phosphate (Fleet Enema*) 1 bottle [place] DAILY PRN Vital Signs 01/06/17 01/06/17 01/06/17 09:39 11:50 11:59 Temperature 97.1 F Pulse Rate 63 Respiratory 18 18 Rate Blood Pressure 108/52 (mmHg) O2 Sat by Pulse 100 Oximetry 01/06/17 01/06/17 01/06/17 12:36 14:36 14:52 Temperature 97.0 F Pulse Rate 57 Respiratory 18 18 16 Rate Blood Pressure (mmHg) O2 Sat by Pulse 100 Oximetry 01/06/17 01/06/17 01/06/17 14:54 16:00 16:17 Temperature Pulse Rate Respiratory Rate Blood Pressure 100/50 (mmHg) O2 Sat by Pulse 98 98 Oximetry 01/06/17 01/06/17 01/06/17 17:06 19:06 19:21 Temperature Pulse Rate 69 Respiratory 20 16 15 Rate Blood Pressure 85/35 (mmHg) O2 Sat by Pulse 100 Oximetry 01/06/17 01/06/17 01/06/17 19:37 19:38 19:49 Temperature 96.8 F Pulse Rate Respiratory 15 Rate Blood Pressure 94/52 (mmHg) O2 Sat by Pulse Oximetry 01/06/17 01/06/17 01/07/17 21:04 23:04 00:00 Temperature Pulse Rate Respiratory 18 16 Rate Blood Pressure (mmHg) O2 Sat by Pulse 100 Oximetry 01/07/17 01/07/17 01/07/17 00:12 03:43 03:45 Temperature 97.7 F Pulse Rate 68 Respiratory 16 Rate Blood Pressure 102/54 92/54 (mmHg) O2 Sat by Pulse 100 Oximetry 01/07/17 01/07/17 01/07/17 03:50 07:34 07:35 Temperature 97.0 F Pulse Rate 74 Respiratory 16 16 16 Rate Blood Pressure 98/48 (mmHg) O2 Sat by Pulse 100 100 Oximetry Oxygen Devices in Use Now: None Appearance: Elderly female sitting up in chair in NAD Eyes: No Scleral Icterus Ears/Nose/Mouth/Throat: Mucous Membranes Moist Neck: Trachea Midline Respiratory: Symmetrical Chest Expansion and Respiratory Effort, Clear to Auscultation Cardiovascular: NL Sounds; No Murmurs; No JVD, No Edema Abdominal: NL Sounds; No Tenderness; No Distention Lymphatic: No Cervical Adenopathy Extremities: No Edema Skin: No Rash or Ulcers Neurological: Alert and Oriented x 3, NL Muscle Strength and Tone Nutrition: Taking PO's Result Diagrams: 01/07/17 06:08 01/06/17 05:30 Microbiology and Other Data: Microbiology 01/04/17 15:20 Nasal Screen MRSA (PCR)(GOOD) - Final Nasal Mrsa Negative Assess/Plan/Problems-Billing Assessment: Ms. Camilo is an 81 yo female with a PMH of chronic diastolic HF, CAD with NSTEMI, CKD, paroxymal afib, and dysphagia on tube feedings who was admitted on 01/04/17 with a right hip fracture after a mechanical fall. - Patient Problems (1) Closed right hip fracture Comment: - POD # 2. - Management per ortho. - Pain meds prn with bowel regimen. - Hgb down to 8.0 from 12. Will consider transfusion if < 8 and/or patient is symptomatic. (2) Chronic diastolic heart failure Comment: - Asymptomatic. Appears euvolemic. (3) CKD (chronic kidney disease) Comment: - Creatinine at baseline. (4) UTI (urinary tract infection) Comment: - Diagnosed at [facility]. - Completed course of cephalexin. (5) CAD (coronary artery disease) Comment: - Asymptomatic. - Hx of NSTEMI at [facility] in October 2016, thought to be due to sepsis and demand ischemia. EF 09/2016 was normal. - Continue low dose aspirin. (6) Paroxysmal a-fib Comment: - Currently in SR. - Not on rate controlling agents (question history of tachy-reshma syndrome) or anticoagulation likely due to poor functional status. (7) Hypothyroidism Comment: - Continue levothyroxine. (8) Dysphagia Comment: - Continue jevity per routine. (9) GERD (gastroesophageal reflux disease) Comment: - Continue famotidine. (10) DVT prophylaxis Comment: - Continue lovenox. (11) DNR (do not resuscitate) Status and Disposition: Inpatient. Likely return to [facility] when medically stable.
[2017-01-07] MEDS: Ferrous Sulfate LIQ* 300 MG/5 ML UDC PEG TUBE SCH (09:46)
[2017-01-07] MEDS: Enoxaparin(*) 30 MG/0.3 ML SYR SUBCUT SCH (09:47)
[2017-01-07] MEDS: Aspirin EC Low Dose* 81 MG TAB.EC SCH (09:47)
[2017-01-07] MEDS: Famotidine SUSP* 40 MG/5 ML ORAL.SUSP PEG TUBE SCH (10:06)
[2017-01-07] MEDS: Cephalexin SUSP* 250 MG/5 ML ORAL.SUSP 100 ML BTL PEG TUBE SCH ×3 (10:06→20:51)
--- NOTE | 2017-01-07 10:15 | PN ---
Progress Note - Progress Note Date of Service: 01/07/17 SOAP: Subjective: 81 y/o female POD #2 CR cannulated screws R hip femoral neck fracture. Objective: General- Resting in chair comfortably, NAD, AO MSK- SUrgical dressing removed, minimal old blood at wound site, no erythema/ warmth. Dressing replaced, + DF/PF b/l LEs, PT 2+ b/l, neg homans b/l, sensation to light touch intact. R hip flexion to ~30 before pain. Vital Signs Temp 97.0 F 01/07/17 07:34 Pulse 74 01/07/17 07:34 Resp 18 01/07/17 09:47 BP 98/48 01/07/17 07:34 Pulse Ox 100 01/07/17 07:35 Intake & Output 01/06/17 01/07/17 01/07/17 18:59 06:59 18:59 Intake Total 2483 1378 Output Total 700 1475 Balance 1783 -97 Intake: IV Fluids 1918 1288 NS 1810 1288 cefazolin 108 Oral 0 Tube Feeding 150 Tube Feeding Flush Amount 415 90 Output: [place] 700 1475 Other: # Bowel Movements 1 Estimated Stool Amount Medium Assessment: 81 y/o female POD #2 CR cannulated screws R hip femoral neck fracture. Plan: - Post-Op Anemia- Continues to be stable, low BP, RRR. Monitor for possible transfusion, cardiac history. Continue iron - Continue PT/OT - Latham removal today - Daily dressing changes. - DVT prophylaxis- lovenox Active Medications Generic Name Dose Route Start Last Admin Trade Name Freq PRN Reason Stop Dose Admin Acetaminophen 320 mg 01/06/17 02:58 01/07/17 06:00 Tylenol Adult Liq* PEG TUBE 320 mg Q6H PRN Administration FEVER/PAIN Aspirin 81 mg 01/05/17 09:00 01/07/17 09:47 Aspirin Ec Low Dose* .SEE ORDER 81 mg DAILY BERNADETTE Administration Bisacodyl 10 mg 01/04/17 15:52 01/07/17 00:01 Dulcolax Supp* CA 10 mg DAILY PRN Administration CONSTIPATION Cephalexin HCl 250 mg 01/06/17 21:00 01/07/17 10:06 Keflex Susp* PEG TUBE 01/08/17 14:30 250 mg 0900,1400,2100 BERNADETTE Administration Docusate Sodium 100 mg 01/04/17 16:18 01/06/17 09:47 Colace Liq* PO 100 mg BID PRN Administration CONSTIPATION Enoxaparin Sodium 30 mg 01/06/17 09:00 01/07/17 09:47 Lovenox(*) SUBCUT 30 mg DAILY BERNADETTE Administration Famotidine 20 mg 01/05/17 09:00 01/07/17 10:06 Pepcid Susp* PEG TUBE 20 mg DAILY BERNADETTE Administration Ferrous Sulfate 300 mg 01/05/17 09:00 01/07/17 09:46 Feosol Liq* PEG TUBE 300 mg DAILY BERNADETTE Administration Sodium Chloride 1,000 mls @ 100 mls/hr 01/05/17 18:45 01/07/17 07:35 Ns 0.9% 1000 Ml* IV 100 mls/hr PER RATE BERNADETTE Administration Lactulose 15 ml 01/04/17 15:53 01/06/17 17:06 Lactulose* PEG TUBE 15 ml DAILY PRN Administration CONSTIPATION Levothyroxine Sodium 75 mcg 01/05/17 06:00 01/07/17 05:37 Synthroid Tab* PEG TUBE 75 mcg DAILY@0600 BERNADETTE Administration Magnesium Hydroxide 30 ml 01/04/17 15:53 01/06/17 09:47 Milk Of Magnesia Liq* PO 30 ml BEDTIME PRN Administration CONSTIPATION Ondansetron HCl 4 mg 01/04/17 15:53 Zofran Odt Tab* SL Q4HR PRN NAUSEA Oxycodone HCl 5 mg 01/05/17 18:34 01/07/17 09:47 Roxycodone Tab* PO 5 mg Q4H PRN Administration PAIN Polyvinyl Alcohol 1 drop 01/04/17 15:53 Polyvinyl Alcohol 1.4% Opth* BOTH EYES Q4H PRN DRY EYE Sodium Biphosphate/Sodium Phosphate 1 bottle 01/04/17 15:53 Fleet Enema* [place] DAILY PRN CONSTIPATION
[2017-01-07] MEDS: Artificial Tears* 15 ML BTL BOTH EYES PRN ×2 (10:52→15:45)
[2017-01-08] MEDS: oxyCODONE TAB* 5 MG TAB PO PRN ×4 (03:44→18:29)
[2017-01-08] MEDS: Levothyroxine TAB* 75 MCG TAB PEG TUBE SCH (05:41)
[2017-01-08 06:24] LABS: Hematocrit 23 % (35-47); Hemoglobin 7.6 g/dl (12.0-16.0)
--- NOTE | 2017-01-08 08:44 | PN ---
Progress Note - Progress Note Date of Service: 01/08/17 SOAP: Subjective: Complains of right hip, reduced since yesterday [facility] had planned to transfuse for Hb <8, but patient does not complain of CP, SOB. Objective: NAD RLE - small amount of dried, bloody spotting on dressing - inc cdi - NVID including DP pulse intact Selected Entries 01/08/17 07:27 Temperature 96.9 F Pulse Rate 72 Respiratory 16 Rate Blood Pressure 87/38 (mmHg) O2 Sat by Pulse 100 Oximetry Laboratory Tests 01/06/17 01/07/17 01/08/17 05:30 06:08 06:02 Hct 25 L 25 L 23 L UO 1900cc yesterday. Assessment: POD 3 R hip closed reduction cannulated screws Plan: - PT, OOB, TDWB RLE - Lovenox 30 daily - Pain control - Dispo planning. Discharge when medically stable. - f/u in office 10-14 days postop for removal of abhijit, x-rays - Given 1900cc urine in last 24 hours, I suspect that H/H decrease is likely secondary to hemodilution. Perhaps medicine should discontinue IVF or adjust tube feeds. - f/u H/H tomorrow morning, defer to [facility] on transfusion.
[2017-01-08] MEDS: Acetaminophen ADULT LIQ* 650 MG/20.3 ML UDC PEG TUBE PRN ×2 (09:01→18:30)
[2017-01-08] MEDS: Enoxaparin(*) 30 MG/0.3 ML SYR SUBCUT SCH (09:02)
[2017-01-08] MEDS: Ferrous Sulfate LIQ* 300 MG/5 ML UDC PEG TUBE SCH (09:02)
[2017-01-08] MEDS: Aspirin EC Low Dose* 81 MG TAB.EC SCH (09:03)
[2017-01-08] MEDS: Cephalexin SUSP* 250 MG/5 ML ORAL.SUSP 100 ML BTL PEG TUBE SCH ×2 (09:03→14:34)
[2017-01-08] MEDS: Famotidine SUSP* 40 MG/5 ML ORAL.SUSP PEG TUBE SCH (10:20)
--- NOTE | 2017-01-08 16:38 | PN ---
Subjective Date of Service: 01/08/17 Interval History: Ms. Camilo states that she is feeling well today. She denies any complaint including chest pain, SOB, nausea, or abdominal pain. Objective Active Medications: Acetaminophen (Tylenol Adult Liq*) 320 mg PEG TUBE Q6H PRN Aspirin (Aspirin Ec Low Dose*) 81 mg .SEE ORDER DAILY BERNADETTE Bisacodyl (Dulcolax Supp*) 10 mg [place] DAILY PRN Docusate Sodium (Colace Liq*) 100 mg PO BID PRN Enoxaparin Sodium (Lovenox(*)) 30 mg SUBCUT DAILY BERNADETTE Famotidine (Pepcid Susp*) 20 mg PEG TUBE DAILY BERNADETTE Ferrous Sulfate (Feosol Liq*) 300 mg PEG TUBE DAILY BERNADETTE Lactulose (Lactulose*) 15 ml PEG TUBE DAILY PRN Levothyroxine Sodium (Synthroid Tab*) 75 mcg PEG TUBE DAILY@0600 BERNADETTE Magnesium Hydroxide (Milk Of Magnesia Liq*) 30 ml PO BEDTIME PRN Ondansetron HCl (Zofran Odt Tab*) 4 mg SL Q4HR PRN Oxycodone HCl (Roxycodone Tab*) 5 mg PO Q4H PRN Polyvinyl Alcohol (Polyvinyl Alcohol 1.4% Opth*) 1 drop BOTH EYES Q4H PRN Sodium Biphosphate/Sodium Phosphate (Fleet Enema*) 1 bottle [place] DAILY PRN Vital Signs 01/07/17 01/07/17 01/07/17 19:08 19:13 19:15 Temperature 96.5 F Pulse Rate 58 Respiratory 18 16 18 Rate Blood Pressure (mmHg) O2 Sat by Pulse 100 Oximetry 01/07/17 01/07/17 01/07/17 19:17 19:21 19:24 Temperature Pulse Rate Respiratory 18 18 Rate Blood Pressure 102/46 (mmHg) O2 Sat by Pulse Oximetry 01/07/17 01/07/17 01/07/17 21:08 23:28 23:36 Temperature 97.0 F Pulse Rate 68 Respiratory 16 16 16 Rate Blood Pressure 104/40 (mmHg) O2 Sat by Pulse 100 Oximetry 01/07/17 01/08/17 01/08/17 23:46 01:28 01:51 Temperature Pulse Rate Respiratory 16 Rate Blood Pressure 105/60 (mmHg) O2 Sat by Pulse 100 Oximetry 01/08/17 01/08/17 01/08/17 03:43 03:44 05:44 Temperature 96.8 F Pulse Rate 72 Respiratory 16 16 16 Rate Blood Pressure 103/57 (mmHg) O2 Sat by Pulse 100 Oximetry 01/08/17 01/08/17 01/08/17 07:27 07:35 08:15 Temperature 96.9 F Pulse Rate 72 Respiratory 16 16 Rate Blood Pressure 87/38 (mmHg) O2 Sat by Pulse 100 100 97 Oximetry 01/08/17 01/08/17 01/08/17 09:00 10:46 11:26 Temperature 96.7 F Pulse Rate 71 Respiratory 16 16 18 Rate Blood Pressure 82/42 (mmHg) O2 Sat by Pulse 97 Oximetry 01/08/17 01/08/17 14:04 15:22 Temperature 97.0 F Pulse Rate 71 Respiratory 16 15 Rate Blood Pressure 85/44 (mmHg) O2 Sat by Pulse 99 Oximetry Oxygen Devices in Use Now: None Appearance: Elderly female lying in bed in NAD Eyes: No Scleral Icterus Ears/Nose/Mouth/Throat: Mucous Membranes Moist Neck: Trachea Midline Respiratory: Symmetrical Chest Expansion and Respiratory Effort, Clear to Auscultation Cardiovascular: NL Sounds; No Murmurs; No JVD, No Edema Abdominal: NL Sounds; No Tenderness; No Distention Lymphatic: No Cervical Adenopathy Extremities: No Edema Skin: No Rash or Ulcers Neurological: Alert and Oriented x 3, NL Muscle Strength and Tone Result Diagrams: 01/08/17 06:02 01/06/17 05:30 Microbiology and Other Data: Microbiology 01/04/17 15:20 Nasal Screen MRSA (PCR)(GOOD) - Final Nasal Mrsa Negative Assess/Plan/Problems-Billing Assessment: Ms. Camilo is an 81 yo female with a PMH of chronic diastolic HF, CAD with NSTEMI, CKD, paroxymal afib, and dysphagia on tube feedings who was admitted on 01/04/17 with a right hip fracture after a mechanical fall. - Patient Problems (1) Closed right hip fracture Comment: - POD # 3. - Management per ortho. - Pain meds prn with bowel regimen. - Hgb down to 7.6 from 12. May be component of hemodilution, d/c'd IV fluids. Will order one unit of PRBC given history of NSTEMI in October 2016. (2) Chronic diastolic heart failure Comment: - Asymptomatic. Appears euvolemic. (3) CKD (chronic kidney disease) Comment: - Creatinine at baseline. (4) UTI (urinary tract infection) Comment: - Diagnosed at [facility]. - Completed course of cephalexin. (5) CAD (coronary artery disease) Comment: - Asymptomatic. - Hx of NSTEMI at [facility] in October 2016, thought to be due to sepsis and demand ischemia. EF 09/2016 was normal. - Continue low dose aspirin. (6) Paroxysmal a-fib Comment: - Currently in SR. - Not on rate controlling agents (question history of tachy-reshma syndrome) or anticoagulation likely due to poor functional status. (7) Hypothyroidism Comment: - Continue levothyroxine. (8) Dysphagia Comment: - Continue jevity per routine with free water. (9) GERD (gastroesophageal reflux disease) Comment: - Continue famotidine. (10) DVT prophylaxis Comment: - Continue lovenox. (11) DNR (do not resuscitate) Status and Disposition: Inpatient. Discharged planned for tomorrow back to [facility].
[2017-01-09] MEDS: oxyCODONE TAB* 5 MG TAB PO PRN ×2 (03:39→08:36)
[2017-01-09] MEDS: Levothyroxine TAB* 75 MCG TAB PEG TUBE SCH (05:40)
[2017-01-09 05:53] LABS: Hematocrit 27 % (35-47)
[2017-01-09 07:36] VITALS: BP 105/50
--- NOTE | 2017-01-09 08:01 | PN ---
Subjective Date of Service: 01/09/17 Interval History: Patient seen and examined at bedside. Ms. Camilo is sitting up in bed doing leg exercises. She denies any fever/chills, chest pain, SOB, n/v. She does reports some left leg stiffness secondary to sleeping longer than usual. No other concerns. She is looking forward to going back home today. Family History: Unchanged from Admission Social History: Unchanged from Admission Past Medical History: Unchanged from Admission Objective Active Medications: Acetaminophen (Tylenol Adult Liq*) 320 mg PEG TUBE Q6H PRN PRN Reason: FEVER/PAIN Last Admin: 01/08/17 18:30 Dose: 320 mg Aspirin (Aspirin Ec Low Dose*) 81 mg .SEE ORDER DAILY [facility] Last Admin: 01/08/17 09:03 Dose: 81 mg Bisacodyl (Dulcolax Supp*) 10 mg AK DAILY PRN PRN Reason: CONSTIPATION Last Admin: 01/07/17 00:01 Dose: 10 mg Docusate Sodium (Colace Liq*) 100 mg PO BID PRN PRN Reason: CONSTIPATION Last Admin: 01/06/17 09:47 Dose: 100 mg Enoxaparin Sodium (Lovenox(*)) 30 mg SUBCUT DAILY [facility] Last Admin: 01/08/17 09:02 Dose: 30 mg Famotidine (Pepcid Susp*) 20 mg PEG TUBE DAILY [facility] Last Admin: 01/08/17 10:20 Dose: 20 mg Ferrous Sulfate (Feosol Liq*) 300 mg PEG TUBE DAILY [facility] Last Admin: 01/08/17 09:02 Dose: 300 mg Lactulose (Lactulose*) 15 ml PEG TUBE DAILY PRN PRN Reason: CONSTIPATION Last Admin: 01/06/17 17:06 Dose: 15 ml Levothyroxine Sodium (Synthroid Tab*) 75 mcg PEG TUBE DAILY@0600 [facility] Last Admin: 01/09/17 05:40 Dose: 75 mcg Magnesium Hydroxide (Milk Of Magnesia Liq*) 30 ml PO BEDTIME PRN PRN Reason: CONSTIPATION Last Admin: 01/06/17 09:47 Dose: 30 ml Ondansetron HCl (Zofran Odt Tab*) 4 mg SL Q4HR PRN PRN Reason: NAUSEA Oxycodone HCl (Roxycodone Tab*) 5 mg PO Q4H PRN PRN Reason: PAIN Last Admin: 01/09/17 03:39 Dose: 5 mg Polyvinyl Alcohol (Polyvinyl Alcohol 1.4% Opth*) 1 drop BOTH EYES Q4H PRN PRN Reason: DRY EYE Last Admin: 01/07/17 15:45 Dose: 1 drop Sodium Biphosphate/Sodium Phosphate (Fleet Enema*) 1 bottle AK DAILY PRN PRN Reason: CONSTIPATION Vital Signs 01/08/17 01/08/17 01/08/17 08:15 09:00 10:46 Temperature Pulse Rate Respiratory 16 16 Rate Blood Pressure (mmHg) O2 Sat by Pulse 97 Oximetry 01/08/17 01/08/17 01/08/17 11:26 14:04 15:22 Temperature 96.7 F 97.0 F Pulse Rate 71 71 Respiratory 18 16 15 Rate Blood Pressure 82/42 85/44 (mmHg) O2 Sat by Pulse 97 99 Oximetry 01/08/17 01/08/17 01/08/17 16:04 18:29 19:24 Temperature 97.2 F 97.5 F Pulse Rate 74 73 Respiratory 16 16 16 Rate Blood Pressure 90/38 107/42 (mmHg) O2 Sat by Pulse 97 100 Oximetry 01/08/17 01/08/17 01/08/17 20:27 20:29 23:38 Temperature 97.6 F Pulse Rate 65 Respiratory 20 16 16 Rate Blood Pressure 108/47 (mmHg) O2 Sat by Pulse 100 Oximetry 01/09/17 01/09/17 01/09/17 03:36 03:39 05:39 Temperature 97.7 F Pulse Rate 77 Respiratory 16 16 16 Rate Blood Pressure 118/42 (mmHg) O2 Sat by Pulse 99 Oximetry 01/09/17 01/09/17 01/09/17 07:25 07:29 07:35 Temperature 97.3 F Pulse Rate 68 Respiratory 16 16 Rate Blood Pressure 79/37 105/50 (mmHg) O2 Sat by Pulse 100 99 Oximetry Oxygen Devices in Use Now: None Appearance: Well appearing, elderly female, sitting up in bed, NAD Eyes: No Scleral Icterus Ears/Nose/Mouth/Throat: Clear Oropharnyx, Mucous Membranes Moist Neck: NL Appearance and Movements; NL JVP Respiratory: Symmetrical Chest Expansion and Respiratory Effort, Clear to Auscultation Cardiovascular: NL Sounds; No Murmurs; No JVD, RRR Abdominal: NL Sounds; No Tenderness; No Distention Extremities: No Edema, No Clubbing, Cyanosis Skin: No Rash or Ulcers, - - right hip dressing c/d/i except for small amount of old drainage Neurological: Alert and Oriented x 3, NL Muscle Strength and Tone Lines/Tubes/Other Access: Clean, Dry and Intact Peripheral IV Nutrition: Taking PO's Result Diagrams: 01/09/17 05:33 01/06/17 05:30 Microbiology and Other Data: Microbiology 01/04/17 15:20 Nasal Screen MRSA (PCR)(GOOD) - Final Nasal Mrsa Negative Assess/Plan/Problems-Billing Assessment: Ms. Camilo is an 81 yo female with a PMH of chronic diastolic HF, CAD with NSTEMI, CKD, paroxymal afib, and dysphagia on tube feedings who was admitted on 01/04/17 with a right hip fracture after a mechanical fall. - Patient Problems (1) Closed right hip fracture Code(s): S72.001A - FRACTURE OF UNSP PART OF NECK OF RIGHT FEMUR, INIT Comment : - POD # 4 - Management per ortho. - Pain meds prn with bowel regimen. - HH stable at 9.0/27 s/p 1 unit PRBC (2) Chronic diastolic heart failure Code(s): I50.32 - CHRONIC DIASTOLIC (CONGESTIVE) HEART FAILURE Comment: - Asymptomatic. Appears euvolemic. (3) CKD (chronic kidney disease) Code(s): N18.9 - CHRONIC KIDNEY DISEASE, UNSPECIFIED Comment: - Creatinine at baseline. (4) UTI (urinary tract infection) Comment: - Diagnosed at [facility]. - Completed course of cephalexin. (5) CAD (coronary artery disease) Code(s): I25.10 - ATHSCL HEART DISEASE OF [place] CORONARY ARTERY W/O ANG PCTRS Comment: - Asymptomatic. - Hx of NSTEMI at [facility] in October 2016, thought to be due to sepsis and demand ischemia. EF 09/2016 was normal. - Continue low dose aspirin. (6) Paroxysmal a-fib Code(s): I48.0 - PAROXYSMAL ATRIAL FIBRILLATION Comment: - Currently in SR. - Not on rate controlling agents (question history of tachy-reshma syndrome) or anticoagulation likely due to poor functional status. (7) Hypothyroidism Code(s): E03.9 - HYPOTHYROIDISM, UNSPECIFIED Comment: - Continue levothyroxine. (8) Dysphagia Code(s): R13.10 - DYSPHAGIA, UNSPECIFIED Comment: - Continue Jevity per routine with free water. (9) GERD (gastroesophageal reflux disease) Code(s): K21.9 - GASTRO-ESOPHAGEAL REFLUX DISEASE WITHOUT ESOPHAGITIS Comment : - Continue famotidine. (10) DVT prophylaxis Comment: - Continue SQ enoxaparin. (11) DNR (do not resuscitate) Status and Disposition: Inpatient. Discharge to [facility].
[2017-01-09] MEDS: Ferrous Sulfate LIQ* 300 MG/5 ML UDC PEG TUBE SCH (08:35)
--- NOTE | 2017-01-09 08:35 | DS ---
CC: Dr. Lb Krishna; [facility] * DISCHARGE SUMMARY: DATE OF ADMISSION: 01/04/17 DATE OF DISCHARGE: 01/09/17 PRIMARY CARE PROVIDER: Dr. Lb Krishna ATTENDING PHYSICIAN: Dr. Amy Linda * (dictation provided by Laura Ramsey NP ). PRIMARY DIAGNOSES: 1. Right femoral neck fracture, status post closed reduction and percutaneous screw placement. 2. Acute blood loss anemia. SECONDARY DIAGNOSES: 1. Chronic diastolic heart failure. 2. Chronic kidney disease. 3. Anemia. 4. Hyperlipidemia. 5. Paroxysmal atrial fibrillation. 6. Kgc-XV-kcwtihyiz myocardial infarction in October 2016. 7. Gastroesophageal reflux disease. 8. Hypothyroidism. 9. Dysphagia. 10. Clostridium difficile colitis. 11. Uterine cancer. PAST SURGICAL HISTORY: 1. Status post hysterectomy. 2. Tonsillectomy as a child. 3. PEG tube placement in October 2016 for dysphagia. MEDICATIONS AT THE TIME OF DISCHARGE: 1. Oxycodone 5 mg p.o. q. 4 hours p.r.n. pain. 2. Lovenox 30 mg subcutaneously daily. 3. Aspirin 81 mg via PEG. 4. Benadryl 25 mg as needed via PEG. 5. Cough drops p.r.n. 6. Docusate sodium 10 mL via PEG as needed. 7. Dulcolax suppository 10 mg rectally as needed. 8. Fleet enema one per rectum as needed. 9. Famotidine 40 mg via PEG daily. 10. Ferrous sulfate 300 mg via PEG daily. 11. Lactulose 15 mL via PEG as needed for constipation. 12. Levothyroxine 75 mcg via PEG daily. 13. Melatonin 6 mL via PEG as needed for sleep. 14. Milk of magnesia 30 mL via PEG as needed for constipation. 15. Nitroglycerin 0.4 mg sublingually as needed. 16. Systane Ultra eye drops as needed. 17. Acetaminophen as needed. 18. Zofran as needed. HOSPITAL COURSE: Ms. Camilo is an 81-year-old female with a past medical history of chronic diastolic congestive heart failure, chronic kidney disease, paroxysmal A- fib, and recent clw-YS-jbneraufv LA in october 2016, as well as dysphagia with PEG tube placement, who presented to the hospital on 01/04/17 after a fall at [facility] with right hip pain. Please see the dictated H and P from Evie Sena NP for complete details. The patient reported apparent mechanical fall while at [facility], and she was transferred over to [facility] for further evaluation and treatment. Hip and pelvis x-ray on arrival showed "nondisplaced fracture of the neck of the right femur." Ms. Camilo was admitted to the hospital. She was seen initially in consultation by Dr. Hopkins, but was ultimately taken to the OR by Dr. Callahan. Preoperatively, she did have an echocardiogram which showed that the ejection fraction was normal at 55% to 60% with no significant wall motion or valvular abnormalities. She went on to surgery on 01/05/[address] Callahan performed a closed reduction and percutaneous screw placement. Ms. Camilo has done well in the postoperative period. She has been participating with physical therapy, but needs further rehabilitation. Since surgery, her hemoglobin has drifted slowly down. Hemoglobin on arrival was 12, and today it was 7.6. Though she was asymptomatic, she does have a history of recent qjp-GG-pfhylxvhh LA, and therefore one unit of packed red blood cells are being transfused today. The patient has no evidence of overt bleeding. I suspect that her anemia is related to surgery and possibly, in part, dilution related to fluid administration while hospitalized. Her vital signs are stable. Her blood pressure is running 80s to 110s, but this has been chronic throughout the hospitalization and she is not on any blood pressure medications at home. Ms. Camilo is medically stable for discharge back to [facility] to continue rehabilitation. Dr. Callahan recommends that she continue on Lovenox, and that she will follow up with him in the office in 10 to 14 days after surgery (which was again on 01/05/17) for removal of abhijit and x-rays. DISPOSITION: [facility]. DIET: Low salt. ACTIVITY: As tolerated with hip precautions as per normal. FOLLOW-UP PLANS: 1. Please follow up with Dr. Callahan on or about the 16 of January. 2. Please follow up with the providers at [facility] per routine. TIME SPENT: Approximately 60 minutes were spent in the discharge of this patient, more than half that time was spent with the patient at the bedside reviewing the events leading up this hospitalization, performing the physical exam, and reviewing the plan of care. LAURA RAMSEY, NURSING UNIT MANAGER [id number]/[facility] #: [id number] [facility] HOSPITALCristal
[2017-01-09] MEDS: Acetaminophen ADULT LIQ* 650 MG/20.3 ML UDC PEG TUBE PRN (08:36)
[2017-01-09] MEDS: Aspirin EC Low Dose* 81 MG TAB.EC SCH (08:36)
[2017-01-09] MEDS: Enoxaparin(*) 30 MG/0.3 ML SYR SUBCUT SCH (08:36)
[2017-01-09] MEDS: Famotidine SUSP* 40 MG/5 ML ORAL.SUSP PEG TUBE SCH (08:43)
--- NOTE | 2017-01-09 09:35 | PN ---
Progress Note - Progress Note Date of Service: 01/09/17 SOAP: Subjective: []Patient seen at bedside. Doing well and ready for discharge to [facility] rehab today. Pain is well managed. Objective: [] Vital Signs Temp 97.3 F 01/09/17 07:25 Pulse 68 01/09/17 07:25 Resp 16 01/09/17 08:36 BP 105/50 01/09/17 07:35 Pulse Ox 99 01/09/17 07:29 Intake & Output 01/08/17 01/09/17 01/09/17 18:59 06:59 18:59 Intake Total 755 287 60 Output Total 950 1150 200 Balance -195 -863 -140 Intake: Oral 50 Tube Feeding 240 237 Tube Feeding Flush Amount 200 60 Packed Cells 315 Output: Urine 950 1150 200 Other: Estimated Void Large Laboratory Results - last 24 hr 01/08/17 01/09/17 06:02 05:33 Hgb 9.0 L Hct 27 L Blood Type O Negative Antibody Screen Negative Crossmatch See Detail Right hip dressing with a quarter sized bloody drainage area, incision benign calf non tender and soft +DF/PF right ankle new 2x2 pressure dressing and 4x4s applied to incision Assessment: []s/p cannulated screw fixation right hip POD #4 Plan: []Discharge to [facility] today continue TTWB RLE follow up with Dr. Callahan in 10-14 days
== END 2017-01-09 10:30 | DRG 481 ==
LOC: SSU 14:23
PROVIDERS: ADMIT Internal Medicine; ATTEND Internal Medicine
PROC: 0QS734Z Reposition Left Upper Femur with Internal Fixation Device, Percutaneous Approach (ICD-10-PCS; principal; 2017-01-05 11:30)
PROC: 30233N1 Transfusion of Nonautologous Red Blood Cells into Peripheral Vein, Percutaneous Approach (ICD-10-PCS; 2017-01-08)
DX: S72.001A Fracture of unspecified part of neck of right femur, initial encounter for closed fracture (principal); I50.32 Chronic diastolic (congestive) heart failure; R00.1 Bradycardia, unspecified; N39.0 Urinary tract infection, site not specified; D62 Acute posthemorrhagic anemia; E78.5 Hyperlipidemia, unspecified; E03.9 Hypothyroidism, unspecified; K21.9 Gastro-esophageal reflux disease without esophagitis; N18.9 Chronic kidney disease, unspecified; I48.0 Paroxysmal atrial fibrillation; R21 Rash and other nonspecific skin eruption; I45.10 Unspecified right bundle-branch block; W10.9XXA Fall (on) (from) unspecified stairs and steps, initial encounter; Z66 Do not resuscitate; R13.12 Dysphagia, oropharyngeal phase; I25.10 Atherosclerotic heart disease of native coronary artery without angina pectoris; Z85.42 Personal history of malignant neoplasm of other parts of uterus; I25.2 Old myocardial infarction; Z90.710 Acquired absence of both cervix and uterus; Z88.1 Allergy status to other antibiotic agents; Z88.0 Allergy status to penicillin; Y92.009 Unspecified place in unspecified non-institutional (private) residence as the place of occurrence of the external cause; Z93.1 Gastrostomy status; Z79.82 Long term (current) use of aspirin; Z79.01 Long term (current) use of anticoagulants
CPT/HCPCS: 36415; 80048; 80053; 85014; 85018; 85025; 86850; 86900; 86901; 86922; 87641; 93306; 94760; A9270-GY; C1713; J0690; J1650; J2250; J2270; J3010; P9016